=== PATIENT | female | born 1935 | race Caucasian/White ===

== ENCOUNTER 2022-06-28 22:49 | Observation (INO) ==
--- NOTE | 2022-06-28 23:12 | DR.SOBA ---
HPI Time Seen Time Seen by Provider: 06/28/22 23:11 Primary Care Physician Primary Care Physician: english Complaints Chief Complaint:: pt called ems after getting SOB after getting up to go to bathroom without her oxygen COVID-19 Coronavirus risk:travel/contact w/high risk person: No Has patient experienced Coronavirus symptoms: No Coronavirus symptoms experienced: Shortness of Breath Source History Provided: EMS Mode of Arrival Mode of Arrival: EMS Timing Onset of Chief Complaint: 06/28/22 PMH PMH Past Medical History: Yes Past Medical History: Angina, CHF, Coronary Artery Disease, Dyslipidemia, Hypert ension and [place] Past Surgical History: Yes Surgical History: CABG/Valve Surgery and Hysterectomy Family History History of Family Medical Conditions: Yes Family Medical History: Hypertension Social History Do you use any recreational Drugs:: No Lives With: Family Lives Where: Home Travel Risk Coronavirus risk:travel/contact w/high risk person: No Has patient experienced Coronavirus symptoms: No Coronavirus symptoms experienced: Shortness of Breath Infectious screening In the last 2 months have you had wt loss of >10#?: NO Have you had fever, night sweats or hemotysis?: No Have you traveled outside the country in the last 6 months?: No Isolation: Respiratory ROS Review of Systems Constitutional: No Symptoms Reported Eyes: No Symptoms Reported ENTM: No Symptoms Reported Respiratoy: No Symptoms Reported Cardiovascular: No Symptoms Reported Gastrointestinal/Abdominal: No Symptoms Reported Genitourinary: No Symptoms Reported Neurological: No Symptoms Reported Musculoskeletal: No Symptoms Reported Integumentary: No Symptoms Reported Hematologic/Lymphatic: No Symptoms Reported Endocrine: No Symptoms Reported Psychiatric: No Symptoms Reported All Other Systems: Reviewed and Negative PE Vital Signs Vitals: Temperature 98.1 F Pulse Rate 74 Respiratory Rate 32 Blood Pressure [Right Arm] 177/88 Blood Pressure [Left Arm] 178/83 Blood Pressure 138/94 O2 Sat by Pulse Oximetry 92 General Limitations: No Limitations General Appearance: Alert and In No Apparent Distress Head Head Exam: Normal Inspection Eyes Eye exam: Normal Appearance ENT ENT Exam: Normal Exam Neck Neck Exam: Normal Inspection Chest Chest Inspection: Normal Inspection Respiratory Respiratory Exam: Normal Lung Sounds Bilat Respiratory Exam: Bilateral: Clear to Auscultation Cardiovascular Cardiovascular Exam: Regular Rate and Normal Rhythm Abdominal Exam Abdominal Exam: Normal Inspection, Normal Bowel Sounds and Soft Extremities Extremities Exam: Normal Inspection Back Back Exam: Normal Inspection Neurologic Neurological Exam: Alert and Oriented X3 Psychiatric Psychiatric Exam: Normal Affect and Normal Mood Skin Skin Exam: Warm, Dry, Intact and Normal Color COURSE Treatment Treatment: Her labs. and CXR were discussed with her and her daughter. She was administered a dose of Lasix and Potassium. I suggested admission for diuresis and futher diagnostics. This was ok with her daughter and I spoke with the on- call provider here (Dr. MORGAN). This request for admission was okayed and admission orders were written. Reevaluation 1st: Improved Education/Counseling Education/Counseling: Patient, Family, Education and Counseling Educated On: Treatment, Diagnosis, Prognosis and Needs for Follow Up ROR Labs Reviewed Result Diagrams: 06/28/22 23:25 06/28/22: Laboratory: WBC 10.7 X10^3/uL (3.6-10.0) H 06/28/22: RBC 4.93 X10^6/uL (3.5-5.4) 06/28/22: Hgb 10.7 g/dL (12.0-16.0) L 06/28/22: Hct 33.5 % (36.0-47.0) L 06/28/22: MCV 68.0 fL (80.0-100.0) L 06/28/22: MCH 21.6 pg (27.0-34.0) L 06/28/22 23: MCHC 31.8 g/dL (33.0-35.0) L 06/28/22: RDW 15.3 % (11.6-16.5) 06/28/22: Plt Count 286 X10^3/uL (150.0-450.0) 06/28/22: Plt Count Comment Adequate (ADEQUATE) 06/28/22: MPV 7.8 fL (7.4-11.0) 06/28/22: Neut % (Auto) 82.7 % (42.0-75.0) H 06/28/22: Lymph % (Auto) 10.3 % (21.0-51.0) L 06/28/22: [place] % (Auto) 5.6 % (0.0-13.0) 01/11/23 23:25 Eos % (Auto) 0.5 % (0.9-2.9) L 06/28/22 23:25 Baso % (Auto) 0.9 % (0.2-1.0) 06/28/22 23:25 Neut # (Auto) 8.9 x10^3/uL (2.2-4.8) H 06/28/22 23:25 Lymph # (Auto) 1.1 X10^3/uL (1.3-2.9) L 06/28/22 23:25 [place] # (Auto) 0.6 x10^3/uL (0.3-0.8) 06/28/22 23:25 Eos # (Auto) 0.1 x10^3/uL (0.0-0.2) 06/28/22 23: Baso # (Auto) 0.1 X10^3/uL (0.0-0.1) 06/28/22 23:25 Absolute Nucleated RBC 0.2 /100WBC 06/28/22 23:25 Plt Morphology Comment Normal (NORMAL) 06/28/22 23: RBC Morphology Abnormal (NORMAL) A 06/28/22 23:25 Hypochromasia 1+ A 06/28/22 23:25 Microcytosis 1+ A 06/28/22 23:25 Target Cells Slight A 06/28/22 23:25 Ovalocytes Slight A 06/28/22 23:25 Sodium 142 mmol/L (136-145) 06/28/22 23:25 Corrected Sodium 144 mmol/L (136-145) 06/28/22 23:25 Potassium 3.1 mmol/L (3.5-5.1) L 06/28/22 23:25 Chloride 104 mmol/L (98-107) 06/28/22 23:25 Carbon Dioxide 25.9 mmol/L (21-32) 06/28/22 23:25 BUN 23 mg/dL (7-18) H 06/28/22 23:25 Creatinine 1.43 mg/dL (0.55-1.02) H 06/28/22 23:25 Est GFR (MDRD) Af Amer 44 (>60) L 06/28/22 23:25 Est GFR (MDRD) Non-Af 37 (>60) L 06/28/22 23:25 Glucose 177 mg/dL (65-99) H 06/28/22 23:25 Calcium 7.9 mg/dL (8.5-10.1) L 06/28/22 23:25 Corrected Calcium 8.6 mg/dL (8.5-10.1) 06/28/22 23:25 Total Bilirubin 0.40 mg/dL (0.2-1.0) 06/28/22 23:25 AST 35 Units/L (15-37) 06/28/22 23:25 ALT 31 Units/L (12-78) 06/28/22 23:25 Alkaline Phosphatase 141 Units/L (46-116) H 06/28/22 23:25 Creatine Kinase 62 Units/L (26-192) 06/28/22 23:25 Troponin I High Sens 57.0 ng/L (4.0-60.0) 06/28/22 23:25 B-Natriuretic Peptide 940 pg/mL (0-79) H* 06/28/22 23:25 Total Protein 6.4 g/dL (6.4-8.2) 06/28/22 23:25 Albumin 3.1 g/dL (3.4-5.0) L 06/28/22 23:25 Globulin 3.3 g/dL (2.5-4.5) 06/28/22 23:25 Albumin/Globulin Ratio 0.9 Ratio (1.1-2.1) L 06/28/22 23:25 Opioid Opioid Risk Tool Age (Epifanio box if 16-45): No History of Preadolescent Sexual Abuse: No Total: 0 Total Score Risk Category: Low Risk Copyright: Marco PENG predicting aberrant behaviors Discharge Plan Diagnosis Discharge Problem: History of [place] (myocardial infarction), Hypertension, uncontrolled, Chronic hypokalemia CHF (congestive heart failure) Qualifiers: Heart failure type: unspecified Heart failure chronicity: unspecified Qualified Code(s): I50.9 - Heart failure, unspecified CAD (coronary artery disease) Qualifiers: Coronary Disease-Associated Artery/Lesion type: [place] artery [place] vs. transplanted heart: [place] heart Associated angina: without angina Qualified Cod e(s): I25.10 - Atherosclerotic heart disease of [place] coronary artery without angina pectoris CKD (chronic kidney disease) stage 3, GFR 30-59 ml/min Qualifiers: Chronic kidney disease stage 3 subtype: stage 3b (GFR 30-44) Qualified Code(s): N18.32 - Chronic kidney disease, stage 3b Dementia Qualifiers: Dementia type: Alzheimer's Alzheimer's disease onset: unspecified onset Dementia severity: severe Dementia behavioral or psychological symptom: without behavioral, psychotic, or mood disturbance or anxiety Qualified Code(s): G30.9 - Alzheimer's disease, unspecified Discharge Plan Patient Disposition: ADMITTED INPATIENT Condition: Stable Prescriptions: No Action furosemide 20 mg tablet 1 tab PO BID levalbuterol HCl 1.25 mg/3 mL solution for nebulization 3 ml INHALATION Q6H PRN Label Comments: [NO ORIGINAL SIG] cefdinir 300 mg capsule 1 cap PO BID lisinopril 10 mg Tablet 10 mg PO DAILY Health Concerns: Post Hospitalization: new medications and changes needed to prevent readmission or further decline. Pt educated and given instructions on all concerns. Plan of Treatment: Continue with present treatment and follow up plan. Pt is to keep follow up appointment as instructed and take medications as ordered. Orders to Discharge Patient Discharge Orders: Transfer (Routine); Ordered 06/29/22 Ordered By: GAVIN CHACON Follow ups/Referrals Follow ups/Referrals: Alaina Barnhart [Primary Care Provider] - 3 days
--- NOTE | 2022-06-28 23:25 | EKG ---
Test Reason : sob Blood Pressure : */* mmHG Vent. Rate : 74 BPM Atrial Rate : 74 BPM P-R Int : 168 ms QRS Dur : 74 ms QT Int : 396 ms P-R-T Axes : 27 -47 29 degrees QTc Int : 439 ms Sinus rhythm with premature atrial complexes Left axis deviation Moderate voltage criteria for LVH, may be normal variant ( R in aVL , Husam product ) Anterior infarct , age undetermined Abnormal ECG Confirmed by Wally Chapin ([id number]) on 06/29/2022 8:36:07 AM Referred By: Confirmed By: Wally Chapin
[2022-06-28 23:35] LABS: BASOPHILS # (AUTO) 0.1 X10^3/uL (0.0-0.1); BASOPHILS % (AUTO) 0.9 % (0.2-1.0); EOSINOPHILS # (AUTO) 0.1 x10^3/uL (0.0-0.2); EOSINOPHILS % (AUTO) 0.5 % (0.9-2.9); HEMATOCRIT 33.5 % (36.0-47.0); HEMOGLOBIN 10.7 g/dL (12.0-16.0); LYMPHOCYTES # (AUTO) 1.1 X10^3/uL (1.3-2.9); LYMPHOCYTES % (AUTO) 10.3 % (21.0-51.0); MEAN CORPUSCULAR HEMOGLOBIN 21.6 pg (27.0-34.0); MEAN CORPUSCULAR HGB CONC 31.8 g/dL (33.0-35.0); MEAN PLATELET VOLUME 7.8 fL (7.4-11.0); MONOCYTES # (AUTO) 0.6 x10^3/uL (0.3-0.8); MONOCYTES % (AUTO) 5.6 % (0.0-13.0); NEUTROPHILS # (AUTO) 8.9 x10^3/uL (2.2-4.8); NEUTROPHILS % (AUTO) 82.7 % (42.0-75.0); RED BLOOD COUNT 4.93 X10^6/uL (3.5-5.4); RED CELL DISTRIBUTION WIDTH 15.3 % (11.6-16.5); WHITE BLOOD COUNT 10.7 X10^3/uL (3.6-10.0)
[2022-06-28 23:49] LABS: ALBUMIN 3.1 g/dL (3.4-5.0); CALCIUM 7.9 mg/dL (8.5-10.1); CARBON DIOXIDE 25.9 mmol/L (21-32); COR CA(FOR HYPOALB) 8.6 mg/dL (8.5-10.1); CREATININE 1.43 mg/dL (0.55-1.02); TOTAL PROTEIN 6.4 g/dL (6.4-8.2)
[2022-06-28 23:50] LABS: HYPOCHROMASIA 1+; MICROCYTOSIS 1+; OVALOCYTES SLIGHT; PLATELET MORPHOLOGY COMMENT NORMAL (NORMAL); TARGET CELLS SLIGHT
[2022-06-29] MEDS ORDERED: LASIX IVP ONE ×2 (00:33→00:34)
[2022-06-29] MEDS ORDERED: K-DUR TAB 20 MEQ PO ONE ×2 (00:36→00:37)
[2022-06-29] MEDS ORDERED: XOPENEX 1.25 MG/3 ML NEBULE NEB PRN (00:45)
[2022-06-29 02:29] VITALS: BMI 21.4
--- NOTE | 2022-06-29 04:50 | RAD ---
STUDY: FRONTAL VIEW CHESTCOMPARISON: 06/21/2022HISTORY: pt called ems after getting SOB after getting up to go to bathroom without her oxygenFINDINGS:[Status post midline sternotomy]Interval development of multifocal alveolar airspace disease in the right lung which was not present on the prior exam.The heart size is within normal limits.The mediastinum is unremarkable.There is no evidence of pleural effusion or gross pneumothorax.The trachea is midline.IMPRESSION:Interval development of multifocal alveolar airspace disease in the right lung which was not present on the prior exam. This would be classified as acute airspace disease such as infection.Electronically signed by: Carlitos Christensen (Jun 29, 2022 04:49:15)
[2022-06-29 06:19] LABS: ALANINE AMINOTRANSFERASE 31 Units/L (12-78); ALBUMIN 3.4 g/dL (3.4-5.0); ALKALINE PHOSPHATASE 139 Units/L (46-116); ASPARTATE AMINO TRANSFERASE 32 Units/L (15-37); BLOOD UREA NITROGEN 22 mg/dL (7-18); CALCIUM 8.4 mg/dL (8.5-10.1); CHLORIDE 101 mmol/L (98-107); COR NA(FOR HYPERGLY) 144 mmol/L (136-145); CREATININE 1.35 mg/dL (0.55-1.02); SODIUM 143 mmol/L (136-145); eGFR NON BLACK RACES 39 (>60)
[2022-06-29] MEDS ORDERED: TUSSIONEX PENNKINETIC SUSP PO PRN (08:21)
[2022-06-29] MEDS: LASIX IVP SCH ×2 (08:56→20:27)
[2022-06-29] MEDS: ROBITUSSIN DM PO SCH ×4 (08:56→20:26)
[2022-06-29] MEDS: K-DUR TAB 20 MEQ PO SCH (08:57)
[2022-06-29] MEDS: LOVENOX INJ 30 MG SYR SC SCH (08:57)
[2022-06-29] MEDS: ZESTRIL TAB 10 MG PO SCH (08:57)
[2022-06-29] MEDS: VIBRAMYCIN 100 MG in NS 100 ML IV 100 ML IV SCH ×2 (08:57→20:27)
[2022-06-29] MEDS ORDERED: ROCEPHIN 1 GRAM IV PREMIX 1 G/50 ML IV.SOLN. IV SCH (09:00)
[2022-06-29] MEDS ORDERED: OMNICEF CAP 300 MG PO SCH (09:00)
[2022-06-29] MEDS: ROCEPHIN VIAL 1 GRAM 1 G in NS 100 ML IV 100 ML IV SCH (10:10)
--- NOTE | 2022-06-29 10:34 | DR.H&P ---
H&P History & Physical for Day of: H&P Date: 06/29/22 Chief Complaint Chief Complaint: Diaphoresis Allergies Allergies Allergy/AdvReac Type Severity Reaction Status Date / Time No Known Drug Allergies Allergy Verified 06/29/22 00:18 History of Present Illness History of Present Illness: This is a 87-year-old white female who presented to the emergency department last night via EMS. They were called after the patient got up and going to the bathroom and came back to bed and she was covered in sweat. She had become short of breath and was having a general overall hard time breathing. She was taken to emergency department which I did a chest x-ray and she saw that she had a right-sided infiltrate in the lung and was found also to be hypoxic. This morning she is satting 92% on 3 L nasal cannula. She is feeling better since admission a few hours ago but is also found to be hypokalemic and mildly dehydrated. Past Medical History Past Medical History: Angina, CHF, Coronary Artery Disease, Dyslipidemia, Hy pertension and [place] Past Surgical History Surgical History: Angioplasty/Stents, Hysterectomy and Ortho Surgery Family History Family Medical History: Cancer and Coronary Artery Disease Social History Does patient currently use any type of tobacco product: No Have you used tobacco products in the last 12 months: No Type of Tobacco Use: None Does any household member use tobacco: No Alcohol Use: None Drug Use: None Medications Home Medications: No Known Drug Allergies Allergy (Verified 06/29/22 00:18) CONTINUE taking the following medications cefdinir 300 mg capsule 1 cap PO BID 06/29/22 [History] furosemide 20 mg tablet 1 tab PO BID 06/29/22 [History] levalbuterol HCl 1.25 mg/3 mL solution for nebulization 3 ml inhalation Q6H PRN 06/29/22 [History] lisinopril 10 mg tablet 10 mg PO DAILY 06/29/22 [History] Labs Result Diagrams: 06/28/22 23:25 06/29/22 05:11 Labs: Laboratory WBC 10.7 X10^3/uL (3.6-10.0) H 06/28/22 23:25 RBC 4.93 X10^6/uL (3.5-5.4) 06/28/22 23:25 Hgb 10.7 g/dL (12.0-16.0) L 06/28/22 23:25 Hct 33.5 % (36.0-47.0) L 06/28/22 23: MCV 68.0 fL (80.0-100.0) L 06/28/22: MCH 21.6 pg (27.0-34.0) L 06/28/22: MCHC 31.8 g/dL (33.0-35.0) L 06/28/22: RDW 15.3 % (11.6-16.5) 06/28/22: Plt Count 286 X10^3/uL (150.0-450.0) 06/28/22 Plt Count Comment Adequate (ADEQUATE) 06/28/22 MPV 7.8 fL (7.4-11.0) 06/28/22 Neut % (Auto) 82.7 % (42.0-75.0) H 06/28/22: Lymph % (Auto) 10.3 % (21.0-51.0) L 06/28/22: [place] % (Auto) 5.6 % (0.0-13.0) 06/28/22: Eos % (Auto) 0.5 % (0.9-2.9) L 06/28/22: Baso % (Auto) 0.9 % (0.2-1.0) 06/28/22: Neut # (Auto) 8.9 x10^3/uL (2.2-4.8) H 06/28/22: Lymph # (Auto) 1.1 X10^3/uL (1.3-2.9) L 06/28/22: [place] # (Auto) 0.6 x10^3/uL (0.3-0.8) 06/28/22: Eos # (Auto) 0.1 x10^3/uL (0.0-0.2) 06/28/22 Baso # (Auto) 0.1 X10^3/uL (0.0-0.1) 06/28/22 Absolute Nucleated RBC 0.2 /100WBC 01/11/23 23:25 Plt Morphology Comment Normal (NORMAL) 06/28/22 23:25 RBC Morphology Abnormal (NORMAL) A 06/28/22 23:25 Hypochromasia 1+ A 06/28/22 23:25 Microcytosis 1+ A 06/28/22 23:25 Target Cells Slight A 06/28/22 23:25 Ovalocytes Slight A 06/28/22 23:25 Sodium 143 mmol/L (136-145) 06/29/22 05:11 Corrected Sodium 144 mmol/L (136-145) 06/29/22 05:11 Potassium 3.1 mmol/L (3.5-5.1) L 06/29/22 05:11 Chloride 101 mmol/L (98-107) 06/29/22 05:11 Carbon Dioxide 32.0 mmol/L (21-32) 06/29/22 05:11 BUN 22 mg/dL (7-18) H 06/29/22 05:11 Creatinine 1.35 mg/dL (0.55-1.02) H 06/29/22 05:11 Est GFR (MDRD) Af Amer 47 (>60) L 06/29/22 05:11 Est GFR (MDRD) Non-Af 39 (>60) L 06/29/22 05:11 Glucose 135 mg/dL (65-99) H 06/29/22 05:11 Calcium 8.4 mg/dL (8.5-10.1) L 06/29/22 05:11 Corrected Calcium TNP 06/29/22 05:11 Total Bilirubin 0.70 mg/dL (0.2-1.0) 06/29/22 05:11 AST 32 Units/L (15-37) 06/29/22 05:11 ALT 31 Units/L (12-78) 06/29/22 05:11 Alkaline Phosphatase 139 Units/L (46-116) H 06/29/22 05:11 Creatine Kinase 62 Units/L (26-192) 06/28/22 23:25 Troponin I High Sens 57.0 ng/L (4.0-60.0) 06/28/22 23:25 B-Natriuretic Peptide 940 pg/mL (0-79) H* 06/28/22 23:25 Total Protein 7.0 g/dL (6.4-8.2) 06/29/22 05:11 Albumin 3.4 g/dL (3.4-5.0) 06/29/22 05:11 Globulin 3.6 g/dL (2.5-4.5) 06/29/22 05:11 Albumin/Globulin Ratio 0.9 Ratio (1.1-2.1) L 06/29/22 05:11 Review of Systems Constitutional: Sweats and Weakness Eyes: No Symptoms Reported ENT: No Symptoms Reported Respiratory: Cough and SOB with Excertion Cardiovascular: No Symptoms Reported Gastrointestinal: No Symptoms Reported Genitourinary: Dysuria Musculoskeletal: No Symptoms Reported Skin: No Symptoms Reported Neurological: No Symptoms Reported Physical Exam Vital Signs: Temperature 97.4 F Pulse Rate [Right Brachial] 87 Pulse Rate 87 Respiratory Rate 20 Blood Pressure [Right Arm] 146/60 Blood Pressure [Left Arm] 178/83 Blood Pressure 138/94 O2 Sat by Pulse Oximetry 92 Oriented: Normal Eyes: Normal Ear: Normal Throat: Normal Respiratory: RML Rhonchi Cardiovascular: Normal Palpation: Normal Tenderness: Normal Skin: Normal Musculoskeletal: Normal Psychiatric: Normal Mood Description: Calm Affect: Normal Speech Pattern: Clear and Appropriate Assessment/Plan (1) Pneumonia: Status: Acute Plan: Start pneumonia protocol. I will start patient on IV Rocephin and Vibramycin. Follow-up sputum culture available. (2) CAD (coronary artery disease): Qualifiers: Coronary Disease-Associated Artery/Lesion type: [place] artery [place] vs. transplanted heart: [place] heart Associated angina: without angina Qualified Code(s): I25.10 - Atherosclerotic heart disease of [place] coronary artery without angina pectoris Status: Chronic (3) Hypertension: Qualifiers: Hypertension type: essential hypertension Qualified Code(s): I10 - Essential (primary) hypertension Status: Chronic Plan: Resume lisinopril 10 mg daily. (4) Osteoarthritis: Status: Chronic (5) Diabetes mellitus: Qualifiers: Diabetes mellitus type: type 2 Diabetes mellitus complication status: without complication Qualified Code(s): E11.9 - Type 2 diabetes mellitus without complications Status: Chronic Plan: Cover with sliding scale regular insulin protocol for (6) Hypothyroidism: Status: Chronic Plan: See what dose of thyroid medicine the patient is taking and started it when we find out. (7) Dementia: Qualifiers: Dementia type: unspecified type Dementia behavioral disturbance: without behavioral disturbance Qualified Code(s): F03.90 - Unspecified dementia without behavioral disturbance Status: Chronic (8) Chronic hypokalemia: Status: Acute Plan: Potassium replacement protocol. (9) CKD (chronic kidney disease) stage 3, GFR 30-59 ml/min: Qualifiers: Chronic kidney disease stage 3 subtype: stage 3b (GFR 30-44) Qualified Code(s): N18.32 - Chronic kidney disease, stage 3b Status: Acute Review H&P Reviewed: Yes Patient was examined?: Yes
[2022-06-30 06:49] LABS: BASOPHILS # (AUTO) 0.2 X10^3/uL (0.0-0.1); BASOPHILS % (AUTO) 3.2 % (0.2-1.0); EOSINOPHILS # (AUTO) 0.2 x10^3/uL (0.0-0.2); EOSINOPHILS % (AUTO) 3.1 % (0.9-2.9); HEMATOCRIT 31.2 % (36.0-47.0); LYMPHOCYTES # (AUTO) 1.8 X10^3/uL (1.3-2.9); LYMPHOCYTES % (AUTO) 26.6 % (21.0-51.0); MEAN CORPUSCULAR HEMOGLOBIN 21.7 pg (27.0-34.0); MEAN CORPUSCULAR VOLUME 67.8 fL (80.0-100.0); MEAN PLATELET VOLUME 8.5 fL (7.4-11.0); MONOCYTES # (AUTO) 0.6 x10^3/uL (0.3-0.8); MONOCYTES % (AUTO) 9.4 % (0.0-13.0); NEUTROPHILS # (AUTO) 3.9 x10^3/uL (2.2-4.8); NEUTROPHILS % (AUTO) 57.7 % (42.0-75.0); RED BLOOD COUNT 4.61 X10^6/uL (3.5-5.4); RED CELL DISTRIBUTION WIDTH 15.1 % (11.6-16.5); WHITE BLOOD COUNT 6.8 X10^3/uL (3.6-10.0)
[2022-06-30 07:06] LABS: ALBUMIN 2.9 g/dL (3.4-5.0); CALCIUM 8.3 mg/dL (8.5-10.1); CARBON DIOXIDE 30.9 mmol/L (21-32); COR CA(FOR HYPOALB) 9.2 mg/dL (8.5-10.1); CREATININE 1.54 mg/dL (0.55-1.02); TOTAL PROTEIN 6.1 g/dL (6.4-8.2)
[2022-06-30 07:15] LABS: HYPOCHROMASIA 1+; MICROCYTOSIS 1+; PLATELET MORPHOLOGY COMMENT NORMAL (NORMAL)
[2022-06-30] MEDS: VIBRAMYCIN 100 MG in NS 100 ML IV 100 ML IV SCH ×2 (08:46→20:53)
[2022-06-30] MEDS: LASIX IVP SCH ×2 (08:46→20:53)
[2022-06-30] MEDS: K-DUR TAB 20 MEQ PO SCH (09:05)
[2022-06-30] MEDS: ZESTRIL TAB 10 MG PO SCH (09:05)
[2022-06-30] MEDS: LOVENOX INJ 30 MG SYR SC SCH (09:06)
[2022-06-30] MEDS: ROBITUSSIN DM PO SCH ×4 (09:06→20:53)
[2022-06-30] MEDS: ROCEPHIN VIAL 1 GRAM 1 G in NS 100 ML IV 100 ML IV SCH (10:09)
--- NOTE | 2022-06-30 12:02 | PCM.PROG ---
Progress Note Progress Note for Day of Date of Exam: 06/30/22 Subjective Subjective: Patient reports she is feeling worse this morning. She had a rough night she reports. She has no other complaints at this time. Past Medical Family Social History Allergies: Allergies No Known Drug Allergies Allergy (Verified 06/29/22 00:18) Review of Systems ROS: No change since H&P Vital Signs and I&O's Vital Signs: Temperature 98.0 F Pulse Rate [Right Brachial] 76 Pulse Rate 87 Respiratory Rate 18 Blood Pressure [Right Arm] 168/62 Blood Pressure [Left Arm] 178/83 Blood Pressure 138/94 O2 Sat by Pulse Oximetry 95 Intake and Output: Intake & Output 06/28/22 06/29/22 06/30/22 07/01/22 11:59 11:59 11:59 11:59 Intake Total 250 / 250 1420 / 1420 Balance 250 / 250 1420 / 1420 Physical Exam Oriented: Normal Eyes: Normal Ear: Normal Throat: Normal Respiratory: Generalized and Diminished Cardiovascular: Normal Tenderness: Normal Skin: Normal Musculoskeletal: Normal Psychiatric: Normal Mood Description: Calm Affect: Normal Speech Pattern: Clear and Appropriate Laboratory and Diagnostics Result Diagrams: 06/30/22 05:11 06/30/22 05:11 Labs: Laboratory WBC 6.8 X10^3/uL (3.6-10.0) 06/30/22 05:11 RBC 4.61 X10^6/uL (3.5-5.4) 06/30/22 05:11 Hgb 10.0 g/dL (12.0-16.0) L 06/30/22 05:11 Hct 31.2 % (36.0-47.0) L 06/30/22 05:11 MCV 67.8 fL (80.0-100.0) L 06/30/22 05:11 MCH 21.7 pg (27.0-34.0) L 06/30/22 05:11 MCHC 32.0 g/dL (33.0-35.0) L 06/30/22 05:11 RDW 15.1 % (11.6-16.5) 06/30/22 05:11 Plt Count 262 X10^3/uL (150.0-450.0) 06/30/22 05:11 Plt Count Comment Adequate (ADEQUATE) 06/30/22 05:11 MPV 8.5 fL (7.4-11.0) 06/30/22 05:11 Neut % (Auto) 57.7 % (42.0-75.0) 06/30/22 05:11 Lymph % (Auto) 26.6 % (21.0-51.0) 06/30/22 05:11 [place] % (Auto) 9.4 % (0.0-13.0) 06/30/22 05:11 Eos % (Auto) 3.1 % (0.9-2.9) H 06/30/22 05:11 Baso % (Auto) 3.2 % (0.2-1.0) H 06/30/22 05:11 Neut # (Auto) 3.9 x10^3/uL (2.2-4.8) 06/30/22 05:11 Lymph # (Auto) 1.8 X10^3/uL (1.3-2.9) 06/30/22 05:11 [place] # (Auto) 0.6 x10^3/uL (0.3-0.8) 06/30/22 05:11 Eos # (Auto) 0.2 x10^3/uL (0.0-0.2) 06/30/22 05:11 Baso # (Auto) 0.2 X10^3/uL (0.0-0.1) H 06/30/22 05:11 Absolute Nucleated RBC 0.0 /100WBC 06/30/22 05:11 Plt Morphology Comment Normal (NORMAL) 06/30/22 05:11 RBC Morphology Abnormal (NORMAL) A 06/30/22 05:11 Hypochromasia 1+ A 06/30/22 05:11 Microcytosis 1+ A 06/30/22 05:11 Target Cells Slight A 06/28/22 23:25 Ovalocytes Slight A 06/28/22 23:25 Sodium 142 mmol/L (136-145) 06/30/22 05:11 Corrected Sodium 142 mmol/L (136-145) 06/30/22 05:11 Potassium 3.4 mmol/L (3.5-5.1) L 06/30/22 05:11 Chloride 103 mmol/L (98-107) 06/30/22 05:11 Carbon Dioxide 30.9 mmol/L (21-32) 06/30/22 05:11 BUN 23 mg/dL (7-18) H 06/30/22 05:11 Creatinine 1.54 mg/dL (0.55-1.02) H 06/30/22 05:11 Est GFR (MDRD) Af Amer 41 (>60) L 06/30/22 05:11 Est GFR (MDRD) Non-Af 34 (>60) L 06/30/22 05:11 Glucose 117 mg/dL (65-99) H 06/30/22 05:11 Calcium 8.3 mg/dL (8.5-10.1) L 06/30/22 05:11 Corrected Calcium 9.2 mg/dL (8.5-10.1) 06/30/22 05:11 Magnesium 2.0 mg/dL (2.0-2.9) 06/30/22 05:11 Total Bilirubin 0.70 mg/dL (0.2-1.0) 06/30/22 05:11 AST 23 Units/L (15-37) 06/30/22 05:11 ALT 20 Units/L (12-78) 06/30/22 05:11 Alkaline Phosphatase 107 Units/L (46-116) 06/30/22 05:11 Creatine Kinase 62 Units/L (26-192) 06/28/22 23:25 Troponin I High Sens 57.0 ng/L (4.0-60.0) 06/28/22 23:25 B-Natriuretic Peptide 710 pg/mL (0-79) H* 06/30/22 05:11 Total Protein 6.1 g/dL (6.4-8.2) L 06/30/22 05:11 Albumin 2.9 g/dL (3.4-5.0) L 06/30/22 05:11 Globulin 3.2 g/dL (2.5-4.5) 06/30/22 05:11 Albumin/Globulin Ratio 0.9 Ratio (1.1-2.1) L 06/30/22 05:11 Plan (1) Pneumonia: Status: Acute Plan: Start pneumonia protocol. I will start patient on IV Rocephin and Vibramycin. Follow-up sputum culture available. (2) CAD (coronary artery disease): Status: Chronic Qualifiers: Coronary Disease-Associated Artery/Lesion type: [place] artery [place] vs. transplanted heart: [place] heart Associated angina: without angina Qualified Code(s): I25.10 - Atherosclerotic heart disease of [place] coronary artery without angina pectoris (3) Hypertension: Status: Chronic Qualifiers: Hypertension type: essential hypertension Qualified Code(s): I10 - Essential (primary) hypertension Plan: Resume lisinopril 10 mg daily. I will add Coreg 12.5 mg twice daily starting today for uncontrolled hypertension. (4) Osteoarthritis: Status: Chronic (5) Diabetes mellitus: Status: Chronic Qualifiers: Diabetes mellitus type: type 2 Diabetes mellitus complication status: without complication Qualified Code(s): E11.9 - Type 2 diabetes mellitus without complications Plan: Cover with sliding scale regular insulin protocol for (6) Hypothyroidism: Status: Chronic Plan: See what dose of thyroid medicine the patient is taking and started it when we find out. (7) Dementia: Status: Chronic Qualifiers: Dementia type: unspecified type Dementia behavioral disturbance: without behavioral disturbance Qualified Code(s): F03.90 - Unspecified dementia without behavioral disturbance (8) Chronic hypokalemia: Status: Acute Plan: Potassium replacement protocol. (9) CKD (chronic kidney disease) stage 3, GFR 30-59 ml/min: Status: Acute Qualifiers: Chronic kidney disease stage 3 subtype: stage 3b (GFR 30-44) Qualified Code(s): N18.32 - Chronic kidney disease, stage 3b
[2022-06-30] MEDS ORDERED: COREG TAB 12.5 MG ONE (19:02)
[2022-06-30] MEDS: COREG TAB 12.5 MG PO SCH (20:53)
[2022-06-30] MEDS ORDERED: BENADRYL CAP/TAB 25 MG PO SCH (21:00)
[2022-06-30] MEDS ORDERED: TYLENOL 500 MG TAB EXTRA STRENGTH PO SCH (21:00)
[2022-06-30] MEDS ORDERED: BENADRYL CAP/TAB 25 MG PO ONE (21:50)
[2022-06-30] MEDS ORDERED: TYLENOL 500 MG TAB EXTRA STRENGTH PO ONE (21:50)
[2022-07-01 05:50] LABS: BASOPHILS % (AUTO) 0.6 % (0.2-1.0); EOSINOPHILS # (AUTO) 0.2 x10^3/uL (0.0-0.2); EOSINOPHILS % (AUTO) 3.7 % (0.9-2.9); HEMATOCRIT 29.7 % (36.0-47.0); HEMOGLOBIN 9.7 g/dL (12.0-16.0); LYMPHOCYTES # (AUTO) 2.1 X10^3/uL (1.3-2.9); LYMPHOCYTES % (AUTO) 33.3 % (21.0-51.0); MEAN CORPUSCULAR HGB CONC 32.6 g/dL (33.0-35.0); MEAN CORPUSCULAR VOLUME 67.4 fL (80.0-100.0); MEAN PLATELET VOLUME 8.5 fL (7.4-11.0); MONOCYTES # (AUTO) 0.6 x10^3/uL (0.3-0.8); MONOCYTES % (AUTO) 9.4 % (0.0-13.0); NEUTROPHILS # (AUTO) 3.3 x10^3/uL (2.2-4.8); RED BLOOD COUNT 4.41 X10^6/uL (3.5-5.4); RED CELL DISTRIBUTION WIDTH 15.4 % (11.6-16.5); WHITE BLOOD COUNT 6.3 X10^3/uL (3.6-10.0)
[2022-07-01 06:09] LABS: ALBUMIN 2.8 g/dL (3.4-5.0); CALCIUM 8.1 mg/dL (8.5-10.1); CARBON DIOXIDE 27.5 mmol/L (21-32); COR CA(FOR HYPOALB) 9.1 mg/dL (8.5-10.1); CREATININE 1.74 mg/dL (0.55-1.02); MAGNESIUM 1.9 mg/dL (2.0-2.9); TOTAL PROTEIN 5.9 g/dL (6.4-8.2)
[2022-07-01 06:33] LABS: METAMYELOCYTES % 1; MICROCYTOSIS 1+; PLATELET MORPHOLOGY COMMENT NORMAL (NORMAL)
[2022-07-01 06:34] LABS: OVALOCYTES SLIGHT; TARGET CELLS SLIGHT
--- NOTE | 2022-07-01 07:37 | RAD ---
HISTORYRight middle lobe pneumoniaSTUDYAP [id number]/11/2023FINDINGSStable borderline cardiomegaly with sternal wires.Similar distribution of patchy right-sided pulmonary infiltrates.Similar dense left lower lobe consolidation obscuring the diaphragm and retrocardiac structures.IMPRESSIONNo significant change in extent or distribution of bilateral pneumonia.Electronically signed by: CHELY ONTIVEROS (Jul 01, 2022 07:35:39)
[2022-07-01] MEDS: K-DUR TAB 20 MEQ PO SCH (09:23)
[2022-07-01] MEDS: COREG TAB 12.5 MG PO SCH (09:24)
[2022-07-01] MEDS: ZESTRIL TAB 10 MG PO SCH (09:24)
[2022-07-01] MEDS: LASIX IVP SCH (09:26)
[2022-07-01] MEDS: ROBITUSSIN DM PO SCH (09:30)
[2022-07-01] MEDS: ROCEPHIN VIAL 1 GRAM 1 G in NS 100 ML IV 100 ML IV SCH (09:34)
[2022-07-01] MEDS: LOVENOX INJ 30 MG SYR SC SCH (09:37)
[2022-07-01] MEDS ORDERED: NS 250 ML IV 250 ML IV PRN (10:21)
[2022-07-01] MEDS: VIBRAMYCIN 100 MG in NS 100 ML IV 100 ML IV SCH (10:39)
[2022-07-01 12:56] VITALS: BP 157/74
== END 2022-07-01 14:26 | disposition home or self-care (01) ==
LOC: MED/SURG 22:49 → ER 22:49 → MED/SURG 06-29 01:00
PROVIDERS: ADMIT Family Medicine; ATTEND Family Medicine
DX: Z99.81 Dependence on supplemental oxygen; I35.8 Other nonrheumatic aortic valve disorders; E03.8 Other specified hypothyroidism; J18.8 Other pneumonia, unspecified organism; E86.0 Dehydration; I50.9 Heart failure, unspecified; N18.32 Chronic kidney disease, stage 3b; R94.31 Abnormal electrocardiogram [ECG] [EKG]; N39.0 Urinary tract infection, site not specified; I25.10 Atherosclerotic heart disease of native coronary artery without angina pectoris; M19.90 Unspecified osteoarthritis, unspecified site; E11.65 Type 2 diabetes mellitus with hyperglycemia; E87.6 Hypokalemia; G30.9 Alzheimer's disease, unspecified; R26.89 Other abnormalities of gait and mobility; I13.0 Hypertensive heart and chronic kidney disease with heart failure and stage 1 through stage 4 chronic kidney disease, or unspecified chronic kidney disease; R41.841 Cognitive communication deficit; I25.2 Old myocardial infarction; R06.02 Shortness of breath